=== PATIENT | female | born 1955 | race Caucasian/White ===

== ENCOUNTER 2016-12-24 14:51 | Emergency (ER) | payer OTHER ==
[2016-12-24 15:51] VITALS: BP 136/75
--- NOTE | 2016-12-24 16:05 | UC ---
Eye Complaint HPI - History of Current Complaint Chief Complaint: Micheal Stated Complaint: EYE COMPLAINT Time Seen by Provider: 12/24/16 15:59 Hx Obtained From: Patient Hx Last Menstrual Period: 2006 ?: No Onset/Duration: Sudden Onset, Lasting Days - 1, Still Present Severity Initially: Moderate Severity Currently: Mild Location of Injury: Conjunctiva Character: Dull - when looking to the left, radiating up into the forehead. Aggravating Factor(s): Other - looking up and to the left Alleviating Factor(s): Nothing Associated Signs And Symptoms: Positive: Drainage (Clear). Negative: Vision Impairment Left Related History: Similar Episode, Diagnosed As: - pink eye a "long time ago" - Risk Factors Penetrating Injury Risk Factor: Negative Globe Rupture Risk Factors: Negative Acute Glaucoma Risk Factors: Negative - Allergies/Home Medications Allergies/Adverse Reactions: Allergies Allergy/AdvReac Type Severity Reaction Status Date / Time Adhesive Tape Allergy Rash Verified 12/24/16 15:53 Home Medications: Home Medications Amoxicillin/Clavulanate TAB* [Augmentin TAB 875*] 875 mg PO BID 12/24/16 [ History Confirmed 12/24/16] Valsartan TAB* [Diovan TAB*] 160 mg PO DAILY 12/24/16 [History Confirmed ] PMH/Surg Hx/FS Hx/Imm Hx Cardiovascular History Of: Reports: Cardiac Disorders, Hypertension, Atrial Fibrillation Denies: Pacemaker/ICD, Congestive Heart Failure - Surgical History Surgical History: Yes Surgery Procedure, Year, and Place: mitral valve replacement/St. Zack Valve 2006. right hip replacement 2009. left hip 08/01/13 - Family History Known Family History: Positive: Hypertension, Diabetes Negative: Cardiac Disease - Social History Occupation: Employed Full-time Lives: Alone Alcohol Use: Rare Substance Use Type: None Smoking Status (MU): Never Smoked Tobacco Have You Smoked in the Last Year: No Review of Systems Eyes: Drainage - clear, Eye Redness Respiratory: Cough - almost resolved from a bronchitis last week. All Other Systems Reviewed And Are Negative: Yes Physical Exam Triage Information Reviewed: Yes Appearance: Well-Appearing, No Pain Distress, Well-Nourished Vital Signs: Initial Vital Signs Temp 97.8 F 12/24/16 15:43 Pulse 61 12/24/16 15:43 Resp 16 12/24/16 15:43 BP 136/75 12/24/16 15:43 Pulse Ox 98 12/24/16 15:43 Vital Signs Reviewed: Yes Eyes: Positive: Conjunctiva Inflamed - OS>>OD with perilimbral injection. Discs sharp, ? cataracts., Other: - Eye tender to palpation but not rock hard. No narrow angle on cross illumination. ENT: Positive: Pharynx normal, TMs normal - Left TM obscurred by obstructing wax. Neck exam: Normal Respiratory Exam: Normal Cardiovascular: Positive: RRR, Other: - Artificial valve murmur Musculoskeletal Exam: Normal Neurological Exam: Normal Psychological Exam: Normal Skin Exam: Normal Eye Complaint Course/Dx - Differential Dx/Diagnosis Differential Diagnosis/HQI/PQRI: Conjunctivitis, Detached Retina, Glaucoma, Uveitis Provider Diagnoses: conjunctivitis, non-specific. Left eye pain Discharge - Discharge Plan Condition: Stable Disposition: HOME Patient Education Materials: Eye Pain (ED) Referrals: Jozef Vazquez MD [Primary Care Provider] - Brady Ruvalcaba MD [Medical Doctor] - 1 Day (for the redness and pain in the left eye. Rule out iritis.) Additional Instructions: You can try cool packs over the eye to see if that helps. Definitely get seen if the pain/ redness are not any better tomorrow.
== END 2016-12-24 16:37 | disposition home or self-care (01) ==
LOC: UCCORT 14:51
DX: H10.32 Unspecified acute conjunctivitis, left eye (principal); H57.12 Ocular pain, left eye; I48.91 Unspecified atrial fibrillation; I10 Essential (primary) hypertension; Z95.2 Presence of prosthetic heart valve; Z96.642 Presence of left artificial hip joint
CPT/HCPCS: 99211; G0463

== ENCOUNTER 2017-11-30 07:04 | Emergency (ER) | payer OTHER ==
[2017-11-30 07:37] VITALS: BP 141/75
--- NOTE | 2017-11-30 08:09 | ED ---
Respiratory - HPI Summary HPI Summary: 62 yr old female with the complaint of dry cough for four days and then for a little over a day chills, myalgias, headache, fatigue. She denies sob, cp. She has a past history of heart valve. She is on coumadin. - History of Current Complaint Chief Complaint: UCRespiratory Stated Complaint: BISHOP,COUGH,SNEEZING Time Seen by Provider: 11/30/17 07:51 Pain Intensity: 6 - Allergy/Home Medications Allergies/Adverse Reactions: Allergies Allergy/AdvReac Type Severity Reaction Status Date / Time Adhesive Tape Allergy Rash Verified 11/30/17 07:28 Home Medications: Home Medications Codeine Phosphate/Guaifenesin [Guaifen-Codeine 100-10 mg/5 ml] 10 ml PO ONCE PRN 11/30/17 [History Confirmed 11/30/17] PMH/Surg Hx/FS Hx/Imm Hx Cardiovascular History: Reports: Hx Hypertension Denies: Hx Congestive Heart Failure, Hx Pacemaker/ICD - Surgical History Surgery Procedure, Year, and Place: mitral valve replacement/St. Zack Valve 2006. right hip replacement 2009. left hip 08/01/13 Infectious Disease History: No Infectious Disease History: Denies: Traveled Outside the [place] in Last 30 Days - Family History Known Family History: Positive: Hypertension, Diabetes Negative: Cardiac Disease - Social History Occupation: Employed Full-time Alcohol Use: Rare Substance Use Type: Reports: None Smoking Status (MU): Never Smoked Tobacco Have You Smoked in the Last Year: No Review of Systems Positive: Chills, Fatigue Positive: Sore Throat Positive: Cough Positive: Myalgia All Other Systems Reviewed And Are Negative: Yes Physical Exam Triage Information Reviewed: Yes Vital Signs On Initial Exam: Initial Vitals Temp Pulse Resp BP Pulse Ox 101.1 F 68 20 141/75 95 11/30/17 07:31 11/30/17 07:31 11/30/17 07:31 11/30/17 07:31 11/30/17 07:31 Vital Signs Reviewed: Yes Appearance: Positive: Well-Appearing, No Pain Distress Skin: Positive: Warm, Skin Color Reflects Adequate Perfusion Head/Face: Positive: Normal Head/Face Inspection ENT: Positive: Pharynx normal, Nasal congestion Neck: Positive: Supple Respiratory/Lung Sounds: Positive: Clear to Auscultation, Breath Sounds Present Cardiovascular: Positive: RRR Musculoskeletal: Positive: Strength/ROM Intact Neurological: Positive: Sensory/Motor Intact, Alert, Oriented to Person Place, Time, CN Intact II-III - [place] Coma Scale Best Eye Response: 4 - Spontaneous Best Motor Response: 6 - Obeys Commands Best Verbal Response: 5 - Oriented Coma Scale Total: 15 Diagnostics - Vital Signs Vital Signs Temp Pulse Resp BP Pulse Ox 11/30/17 07:31 101.1 F 68 20 141/75 95 - Laboratory Lab Statement: Any lab studies that have been ordered have been reviewed, and results considered in the medical decision making process. Disposition - Course Course Of Treatment: 62 yr old with influenza symptoms. plan DC home on tamiflu. - Diagnoses Provider Diagnoses: Influenza, Hypertension Discharge - Discharge Plan Condition: Good Disposition: HOME Prescriptions: Oseltamivir CAP* [Tamiflu CAP*] 75 mg PO BID #10 cap Patient Education Materials: Influenza (ED), Hypertension (ED) Forms: *Work Release Referrals: Jozef Vazquez MD [Primary Care Provider] - 2 Days
== END 2017-11-30 08:11 | disposition home or self-care (01) ==
LOC: UCCORT 07:04
DX: J11.1 Influenza due to unidentified influenza virus with other respiratory manifestations (principal); I10 Essential (primary) hypertension
CPT/HCPCS: 99212; G0463

== ENCOUNTER 2019-03-09 08:50 | Emergency (ER) | payer BC, OTHER ==
[2019-03-09 09:04] VITALS: BP 149/71
--- NOTE | 2019-03-09 09:17 | UC ---
Respiratory Complaint HPI - HPI Summary HPI Summary: 63 yo female with cough/wheezing/sore throat and right ear feeling plugged x 3 days no fever has used inhalers in past no CP mild dyspnea with exertion - History of Current Complaint Chief Complaint: UCGeneralIllness Stated Complaint: SORE THROAT, EAR PAIN Time Seen by Provider: 03/09/19 08:52 Hx Obtained From: Patient Hx Last Menstrual Period: 2006 Onset/Duration: Sudden Onset Timing: Constant Severity Initially: Mild Severity Currently: Moderate Pain Intensity: 5 Pain Scale Used: 0-10 Numeric Character: Cough: Nonproductive Aggravating Factors: Nothing Alleviating Factors: Nothing Associated Signs And Symptoms: Positive: Dyspnea - mild, Wheezing. Negative: Chills, Nasal Congestion, Sinus Discomfort - Allergies/Home Medications Allergies/Adverse Reactions: Allergies Allergy/AdvReac Type Severity Reaction Status Date / Time Adhesive Tape Allergy Rash Verified 03/09/19 08:57 Home Medications: Home Medications Multivitamin [Multivitamins] 1 tab PO DAILY 03/09/19 [History Confirmed 03/09/19 ] PMH/Surg Hx/FS Hx/Imm Hx Previously Healthy: Yes Cardiovascular History: Hypertension, Other Other Cardiovascular History: valve replacement Respiratory History: Bronchitis - Surgical History Surgical History: Yes Surgery Procedure, Year, and Place: mitral valve replacement/St. Zack Valve 2006. right hip replacement 2009. left hip 08/01/13. Nephrectomy 06/2018 - Family History Known Family History: Positive: Hypertension, Diabetes Negative: Cardiac Disease - Social History Alcohol Use: None Substance Use Type: None Smoking Status (MU): Never Smoked Tobacco Have You Smoked in the Last Year: No Review of Systems All Other Systems Reviewed And Are Negative: Yes Constitutional: Positive: Fatigue Skin: Positive: Negative Eyes: Positive: Negative ENT: Positive: Sore Throat, Nasal Discharge, Sinus Congestion, Sinus Pain/ Tenderness Respiratory: Positive: Cough Cardiovascular: Positive: Negative Gastrointestinal: Positive: Negative Genitourinary: Positive: Negative Motor: Positive: Negative Neurovascular: Positive: Negative Musculoskeletal: Positive: Negative Neurological: Positive: Negative Psychological: Positive: Negative Physical Exam Triage Information Reviewed: Yes Appearance: Well-Appearing, No Pain Distress, Well-Nourished Vital Signs: Initial Vital Signs Temp 97.1 F 03/09/19 09:00 Pulse 60 03/09/19 09:00 Resp 16 03/09/19 09:00 BP 149/71 03/09/19 09:00 Pulse Ox 99 03/09/19 09:00 Vital Signs Reviewed: Yes Eyes: Positive: Conjunctiva Clear ENT: Positive: Pharyngeal erythema, Nasal congestion, Uvula midline. Negative: Nasal drainage, TMs normal - unable visualized right TM due cerumen, Tonsillar swelling, Tonsillar exudate, Trismus, Muffled voice, Hoarse voice, Dental tenderness, Sinus tenderness Neck: Positive: Supple, Nontender, No Lymphadenopathy Respiratory: Positive: No respiratory distress, No accessory muscle use, Wheezing - right side >>left Cardiovascular: Positive: RRR, Other: - mechanical heart sound Musculoskeletal: Positive: ROM Intact, No Edema Neurological: Positive: Alert Psychological Exam: Normal Skin Exam: Normal Diagnostics - Radiology No standard instances Radiology Interpretation Completed By: Radiologist Summary of Radiographic Findings: stigmata of COPD, no infiltrate Respiratory Course/Dx - Differential Dx/Diagnosis Provider Diagnosis: COPD with acute exacerbation, Right ear impacted cerumen Discharge - Sign-Out/Discharge Documenting (check all that apply): Patient Departure All imaging exams completed and their final reports reviewed: Yes - Discharge Plan Condition: Stable Disposition: HOME Patient Education Materials: Acute Bronchitis (ED) Referrals: Jozef Vazquez MD [Primary Care Provider] - 4 Days (if not better) Additional Instructions: contact your MD on Sunday and let him know we started you on antibiotics discuss when you should next have your INR checked - Billing Disposition and Condition Condition: STABLE Disposition: Home
[2019-03-09] MEDS ORDERED: predniSONE TAB* 20 MG PO ONE (09:57)
[2019-03-09] MEDS ORDERED: Albuterol HFA INHALER* 8 gm MDI INH ONE (09:57)
== END 2019-03-09 10:13 | disposition home or self-care (01) ==
LOC: UCCORT 08:50
DX: J44.1 Chronic obstructive pulmonary disease with (acute) exacerbation (principal); H61.21 Impacted cerumen, right ear; I10 Essential (primary) hypertension; Z91.09 Other allergy status, other than to drugs and biological substances
CPT/HCPCS: 71046; 99213; A9270-GY; G0463; J7512

== ENCOUNTER 2019-12-22 09:43 | Emergency (ER) | payer BC, OTHER ==
--- OUTSIDE RECORDS SUMMARY | 2019-12-22 09:53 | XMS REPORT | Continuity of Care Document ---
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 Chronic cholecystitis Brady Snyder MD Onset: 08/29/2012 Social History Type Date Description Comments Sex Unknown Tobacco Use Start: Unknown Never Smoked Cigarettes ETOH Use Denies alcohol use Tobacco Use Start: Unknown Patient has never smoked Recreational Drug Use Never Used Drugs Smoking Status Reviewed: 11/26/19 Patient has never smoked Exercise Type/Frequency Exercises sporadically Allergies, Adverse Reactions, Alerts Description No Known Drug Allergies Medications Active Medications SIG Qnty Indications Ordering Date Provider Man Gurrola one puff daily, 3units J44.9 Amalia Hayden, 11/26/2019 rinse mouth after MD 100-25mcg/Inh Aerosol use Spiriva Respimat take 2 puffs once 4gm J44.9 Myke Kay MD 05/13/2019 daily. 2.5mcg/Act Aerosol Proair HFA take 2 puffs 8.500gm J44.9 Myke Kay MD 05/13/2019 108(90Base) every 6 hours as mcg/Act Aerosol needed for shortness of breath. Coumadin sun Unknown 3mg Tablets Coumadin 1 by mouth Unknown 5mg Tablets mon-sat Irbesartan 1 by mouth every Unknown 150mg day Tablets Aspir-Low 1 by mouth every Unknown 81mg Tablets day DR Rodney Calcium one tablet daily Sterling Mukherjee, MEmiliano 40mg Tablets Metoprolol Tartrate 1 by mouth daily Unknown 75mg Tablets History Medications Breo Ellipta J44.9 Amalia Hayden, 11/26/2019 - MD 11/26/2019 100-25mcg/Inh Aerosol Breo Ellipta one puff 60units J44.9 Amalia Hayden, 11/26/2019 - daily, wash MD 11/26/2019 100-25mcg/Inh Aerosol and rinse mouth after use Breo Ellipta one puff daily 3units J44.9 Amalia Hayden, 11/26/2019 - wash and rinse MD 11/26/2019 100-25mcg/Inh Aerosol mouth after use Breo Ellipta one puff 3units J44.9 Amalia Hayden, 11/26/2019 - daily, wash MD 11/26/2019 100-25mcg/Inh Aerosol and rinse mouth after use Immunizations Description No Information Available Vital Signs Date Vital Result Comment 11/26/2019 1:47pm BP Systolic Sitting Right Arm 135 mmHg BP Diastolic Sitting Right Arm 65 mmHg Heart Rate 63 /min Respiratory Rate 18 /min Height 67 inches 5'7" Weight 236.00 lb BMI (Body Mass Index) 37.0 kg/m2 BSA (Body Surface Area) 2.17 m2 [place] body weight in kilograms 61 kg O2 % BldC Oximetry 93 % ra 05/13/2019 3:24pm BP Systolic Sitting Left Arm 132 mmHg BP Diastolic Sitting Left Arm 75 mmHg Heart Rate 62 /min Respiratory Rate 18 /min Height 67 inches 5'7" Weight 231.00 lb BMI (Body Mass Index) 36.2 kg/m2 BSA (Body Surface Area) 2.15 m2 [place] body weight in kilograms 61 kg O2 % BldC Oximetry 95 % Results Description No Information Available Procedures Date Code Description Status 10/15/2008 35770349 Colonoscopy Completed Medical Devices Description No Information Available Encounters Description No Information Available Assessments Date Code Description Provider 11/26/2019 J44.9 Chronic obstructive pulmonary disease, Amalia Hayden MD unspecified Plan of Treatment Future Appointment(s):02/24/2020 1:00 pm - Amalia Hayden MD at Pulmonology Functional Status Description No Information Available Mental Status Description No Information Available Referrals Description No Information Available
[2019-12-22 10:00] VITALS: BP 145/67
[2019-12-22 10:51] LABS: Influenza A Molecular Negative (Negative); Influenza B Molecular Negative (Negative)
--- NOTE | 2019-12-22 11:05 | UC ---
Respiratory Complaint HPI - HPI Summary HPI Summary: 64 yo female with 4 day hx runny nose/cough and sneezing x 3-4 days no f/c no n/v/d no cp or sob no myalgias or BISHOP bilateral otalgia - History of Current Complaint Chief Complaint: UCGeneralIllness Stated Complaint: BILAT EAR PAIN/COUGH Time Seen by Provider: 12/22/19 10:17 Hx Obtained From: Patient Hx Last Menstrual Period: 2006 Onset/Duration: Gradual Onset, Lasting Weeks Timing: Constant Severity Initially: Mild Severity Currently: Mild Pain Intensity: 0 Pain Scale Used: 0-10 Numeric Character: Cough: Nonproductive Aggravating Factors: Nothing Alleviating Factors: Nothing Associated Signs And Symptoms: Positive: Nasal Congestion. Negative: Dyspnea, Fever, Chills, Pleuritic Chest Pain, Wheezing, Hemoptysis, Dizziness, Calf Pain , Edema, URI, Hoarseness, Sinus Discomfort - Allergies/Home Medications Allergies/Adverse Reactions: Allergies Allergy/AdvReac Type Severity Reaction Status Date / Time Adhesive Tape Allergy Rash Verified 12/22/19 09:53 Home Medications: Home Medications Warfarin TAB(*) [Coumadin TAB(*)] 5 mg PO SEE INSTRUCTIONS 05/07/14 [History Confirmed 12/22/19] Metoprolol Tartrate TAB* [Lopressor TAB*] 25 mg PO DAILY 04/09/15 [History Confirmed 12/22/19] Warfarin TAB(*) [Coumadin TAB(*)] 3 mg PO DAILY 07/09/16 [History Confirmed 07/04] Aspirin [Aspir-Low] 81 mg PO DAILY 12/22/19 [History Confirmed 12/22/19] Benzonatate CAP* [Tessalon CAP*] 100 - 200 mg PO TID PRN #28 cap 12/22/19 [Rx] Fluticasone NASAL SPRAY 50MCG* [Flonase NASAL SPRAY 50MCG*] 2 spray BOTH NARES BID #1 btl 12/22/19 [Rx] Irbesartan 150 mg PO DAILY 12/22/19 [History Confirmed 12/22/19] Rosuvastatin Calcium 20 mg PO DAILY 12/22/19 [History Confirmed 12/22/19] PMH/Surg Hx/FS Hx/Imm Hx Previously Healthy: Yes Endocrine History: Diabetes, Dyslipidemia Cardiovascular History: Hypertension, Other Other Cardiovascular History: valve replacement GI/ History: Other Other GI/ History: nephrectomy - Surgical History Surgical History: Yes Surgery Procedure, Year, and Place: mitral valve replacement/St. Zack Valve 2006. right hip replacement 2009. left hip 08/01/13. R nephrectomy 06/2018 - Family History Known Family History: Positive: Hypertension, Diabetes Negative: Cardiac Disease - Social History Alcohol Use: None Substance Use Type: None Smoking Status (MU): Never Smoked Tobacco Have You Smoked in the Last Year: No Review of Systems All Other Systems Reviewed And Are Negative: Yes Constitutional: Positive: Negative Skin: Positive: Negative Eyes: Positive: Negative ENT: Positive: Ear Ache, Nasal Discharge Respiratory: Positive: Cough Cardiovascular: Positive: Negative Gastrointestinal: Positive: Negative Genitourinary: Positive: Negative Motor: Positive: Negative Neurovascular: Positive: Negative Musculoskeletal: Positive: Negative Neurological/Mental Status: Positive: Negative Psychological: Positive: Negative Physical Exam Triage Information Reviewed: Yes Appearance: Well-Appearing, No Pain Distress, Well-Nourished Vital Signs: Initial Vital Signs Temp 97.8 F 12/22/19 09:56 Pulse 65 12/22/19 09:56 Resp 17 12/22/19 09:56 BP 145/67 12/22/19 09:56 Pulse Ox 98 12/22/19 09:56 Vital Signs Reviewed: Yes Eyes: Positive: Conjunctiva Clear ENT: Positive: Hearing grossly normal, Nasal congestion, Nasal drainage. Negative: TMs normal - retracted, Trismus, Muffled voice, Hoarse voice Neck: Positive: Supple, Nontender, No Lymphadenopathy Respiratory: Positive: Lungs clear, Normal breath sounds, No respiratory distress, No accessory muscle use Cardiovascular: Positive: RRR, No Murmur - + mechanical heart valve sound Musculoskeletal: Positive: ROM Intact, No Edema Neurological: Positive: Alert Psychological Exam: Normal Skin Exam: Normal Respiratory Course/Dx - Differential Dx/Diagnosis Provider Diagnosis: Viral URI with cough, Acute serous otitis media, bilateral Discharge ED - Sign-Out/Discharge Documenting (check all that apply): Patient Departure All imaging exams completed and their final reports reviewed: No Studies - Discharge Plan Condition: Stable Disposition: HOME Forms: *Work Release Referrals: Jozef Vazquez MD [Primary Care Provider] - 4 Days (recheck in 4-7 days if not better) - Billing Disposition and Condition Condition: STABLE Disposition: Home
== END 2019-12-22 11:18 | disposition home or self-care (01) ==
LOC: UCCORT 09:43
DX: J06.9 Acute upper respiratory infection, unspecified (principal); R05 Cough; H65.03 Acute serous otitis media, bilateral; E11.9 Type 2 diabetes mellitus without complications; I10 Essential (primary) hypertension; E78.5 Hyperlipidemia, unspecified; Z91.09 Other allergy status, other than to drugs and biological substances; Z79.82 Long term (current) use of aspirin; Z79.899 Other long term (current) drug therapy; Z79.01 Long term (current) use of anticoagulants; Z90.5 Acquired absence of kidney; Z96.643 Presence of artificial hip joint, bilateral
CPT/HCPCS: 99212; G0463